=== PATIENT | female | born 1980 | race Caucasian/White ===

== ENCOUNTER 2018-11-21 23:44 | Emergency (ER) | payer MEDICAID, OTHER ==
[2018-11-22 00:04] VITALS: TEMP 98.8; O2SAT 99
--- NOTE | 2018-11-22 01:19 | C.PDOC ---
History Of Present Illness 38 year old female presents with anxiety and tearfulness due to family issue. Patient receives many phone calls from [place] which causes her much strife. Time Seen by Provider: 11/22/18 00:23 Chief Complaint (Nursing): Anxiety History Per: Patient History/Exam Limitations: no limitations Onset/Duration Of Symptoms: Days Current Symptoms Are (Timing): Still Present Suicide/Self Injury Attempted (Context): None Associated Symptoms: Anxiety Involuntary Hold By: None Recent travel outside of the [place]: No Past Medical History Reviewed: Historical Data, Nursing Documentation, Vital Signs Vital Signs: Last Vital Signs Temp 98.8 F 11/22/18 00:01 Pulse 82 11/22/18 00:01 Resp 18 11/22/18 00:01 BP 135/87 11/22/18 00:01 Pulse Ox 99 11/22/18 00:01 - Medical History PMH: Denies: Chronic Kidney Disease Family History: States: Unknown Family Hx - Social History Hx Alcohol Use: No Hx Substance Use: No - Immunization History Hx Tetanus Toxoid Vaccination: No Hx Influenza Vaccination: No Hx Pneumococcal Vaccination: No Review Of Systems Constitutional: Negative for: Fever, Chills Cardiovascular: Negative for: Chest Pain, Palpitations Respiratory: Negative for: Cough, Shortness of Breath Gastrointestinal: Negative for: Nausea, Vomiting Neurological: Negative for: Weakness, Numbness Psych: Positive for: Anxiety Physical Exam - Physical Exam Appears: Non-toxic, Other (Anxious, tearful, tremulous) Skin: Normal Color, Warm Head: Atraumatic, Normacephalic Eye(s): bilateral: Normal Inspection Oral Mucosa: Moist Neck: Normal, Supple Chest: Symmetrical, No Tenderness Cardiovascular: Rhythm Regular Respiratory: Normal Breath Sounds, No Rales, No Rhonchi, No Wheezing Gastrointestinal/Abdominal: Soft, No Tenderness Neurological/Psych: Oriented x3, Normal Speech ED Course And Treatment O2 Sat by Pulse Oximetry: 99 (Room air) Pulse Ox Interpretation: Normal Progress Note: xanax po given Reevaluation Time: 01:18 Reassessment Condition: Improved Medical Decision Making Medical Decision Making: anxiety- family related Disposition Doctor Will See Patient In The: Office Counseled Patient/Family Regarding: Studies Performed, Diagnosis - Disposition Referrals: [facility] [Outside] [facility] [Outside] [facility] [Outside] Timothy Granados MD [Staff Provider] - Disposition: HOME/ ROUTINE Disposition Time: 01:19 Condition: GOOD Additional Instructions: resolve family issues causing anxiety See Dr. Granados for further evaluation [facility] for further psych/anxiety counseling. Instructions: Anxiety, Adult (DC) Forms: [facility] (Kazakh) - Clinical Impression Clinical Impression: Anxiety - Scribe Statement The provider has reviewed the documentation as recorded by the Scribe Sandip Fletcher All medical record entries made by the Scribe were at my direction and personally dictated by me. I have reviewed the chart and agree that the record accurately reflects my personal performance of the history, physical exam, medical decision making, and the department course for this patient. I have also personally directed, reviewed, and agree with the discharge instructions and disposition.
[2018-11-22 01:25] VITALS: BP 110/70; PULSE 70; RESP 14
== END 2018-11-22 01:25 | disposition home or self-care (01) ==
LOC: C.ER 23:44
DX: F41.9 Anxiety disorder, unspecified (principal)